=== PATIENT | male | born 1990 | race Caucasian/White ===

== ENCOUNTER 2018-03-14 12:49 | Emergency (ER) | payer MEDICAID ==
[~2018-03-14] VITALS: Ht 177.8 cm; Wt 67.2 kg
[~2018-03-14 12:49] MED LIST: IBUP-1986 PO
[2018-03-14 12:52] VITALS: BP 135/75
[2018-03-14] MEDS ORDERED: ACET1TAB12 PO (14:40)
== END 2018-03-14 14:58 | disposition home or self-care (01) ==
LOC: ER 12:49
DX: R07.89 Other chest pain (principal); R07.81 Pleurodynia; Z88.6 Allergy status to analgesic agent; W11.XXXA Fall on and from ladder, initial encounter; Y93.89 Activity, other specified; Y92.89 Other specified places as the place of occurrence of the external cause; Y99.8 Other external cause status
CPT/HCPCS: 71045; 99283

== ENCOUNTER 2020-02-17 01:14 | Emergency (ER) | payer MEDICAID ==
[~2020-02-17] VITALS: Ht 177.8 cm; Wt 77.3 kg
[~2020-02-17 01:14] MED LIST changes: +ACET1TAB12 PO
[2020-02-17 01:23] VITALS: BP 117/61
[2020-02-17] MEDS ORDERED: sulfamethoxazole/trimethoprim DS (800/160mg) tablet PO ONE (01:25)
[2020-02-17] MEDS ORDERED: TETanus/Pertussis (Acell)/Diphther VAC/PF (Tdap-Adult) 0.5ml syringe IMVAC ONE (01:25)
[2020-02-17] MEDS ORDERED: LIDOcaine 1% W/epiNEPHrine 1:200,000 10ml vial IJ ONE (01:25)
[2020-02-17] MEDS ORDERED: SULF1TAB49 PO (01:32)
[2020-02-17] MEDS ORDERED: CefTRIAXone 1000mg IM Kit (w/lidocaine diluent) IM ONE (01:50)
[2020-02-17] MEDS ORDERED: HYDROcodone/acetaminophen 5mg/325mg tablet PO ONE (02:00)
== END 2020-02-17 02:23 | disposition home or self-care (01) ==
LOC: ER 01:16
DX: L02.416 Cutaneous abscess of left lower limb (principal); L03.116 Cellulitis of left lower limb; Z88.5 Allergy status to narcotic agent; Z79.899 Other long term (current) drug therapy
CPT/HCPCS: 10060; 96372; 99283; J0696